=== PATIENT | female | born 1995 | race African-American/Black ===

== ENCOUNTER 2019-09-12 16:20 | Emergency (ER) | payer OTHER ==
--- OUTSIDE RECORDS SUMMARY | 2019-09-12 16:23 | XMS REPORT ---
:1995 Author Organization [facility] Address [address] [place] [address] Dr. Cheney [address] [place] [id number] Care Team Providers Name Role Phone Unavailable Unavailable Unavailable Problems This patient has no known problems. Allergies, Adverse Reactions, Alerts This patient has no known allergies or adverse reactions. Medications This patient has no known medications.
[2019-09-12] MEDS ORDERED: METOCLOPRAMIDE 10 MG/2mL INJ ONE (17:29)
[2019-09-12] MEDS ORDERED: NA CHLORIDE 0.9% 1,000 ML ONE ×2 (17:30→18:40)
[2019-09-12] MEDS ORDERED: DIPHENHYDRAMINE 50 MG/ML VIAL ONE (17:30)
[2019-09-12 17:56] LABS: Absolute Lymphocytes (CBC) 0.3 K/uL (0.7-4.9); Basophils % 0.4 % (0-1.3); Hematocrit 41.9 % (36.0-45.0); Lymphocytes % 2.7 % (15.3-44.8); MPV 8.8 fL (7.6-11.3); RBC Red Blood Cell Count 4.95 M/uL (3.86-4.86)
[2019-09-12 18:10] LABS: ALT/SGPT 38 U/L (12-78); AST/SGOT 24 U/L (15-37); Albumin 3.3 g/dL (3.4-5.0); Alkaline Phosphatase 25 U/L (45-117); BUN Blood Urea Nitrogen 12 mg/dL (7-18); Bicarbonate 22 mmol/L (21-32); Bilirubin Direct 0.1 mg/dL (0-0.2); Bilirubin Total 0.4 mg/dL (0.2-1.0); Glucose Level 102 mg/dL (74-106); Lipase 52 U/L (73-393); Potassium 3.7 mmol/L (3.5-5.1); Protein, Total 7.2 g/dL (6.4-8.2); Sodium Level 139 mmol/L (136-145)
[2019-09-12] MEDS ORDERED: ACETAMINOPHEN 500 MG TAB ONE (18:40)
[2019-09-12 20:08] LABS: Urine Blood TRACE (NEG); Urine Glucose NEGATIVE (NEG); Urine Protein TRACE (NEG); Urine Specific Gravity >1.030 (1.005-1.030); Urine pH 5.5 (5.0-7.0)
--- NOTE | 2019-09-12 20:29 | EDPHYS ---
Physician Documentation [facility] Name: Johnny Reynolds Age: 24 yrs Sex: Female : 1995 Arrival Date: 09/12/2019 Time: 16:31 Bed 27 Private MD: ED Physician Jer Nance HPI: 09/12 16:59 This 24 yrs old Black Female presents to ER via Ambulatory with complaints of Vomiting, jmm 19 wks . 16:59 The patient presents to the emergency department with nausea, vomiting. Onset: The jmm symptoms/episode began/occurred gradually, 1 day(s) ago. Possible causes: unknown, sick contacts, by family, daughter. The symptoms are aggravated by nothing. The symptoms are alleviated by nothing. Associated signs and symptoms: Pertinent negatives: fever. This is a 24 year old female with no chronic medical conditions whom is currently 19 weeks presents to the ED with complaints of vomiting, nausea beginning yesterday. No relief with OTC medications. Daughter has similar symptoms. Denies diarrhea. Denies fever. Denies vaginal bleeding but states having some pelvic cramping radiating to her back. . 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 - Social history:: Smoking status: Patient/guardian denies using tobacco. - Ebola Screening: : No symptoms or risks identified at this time. ROS: 16:59 Constitutional: Negative for fever, chills, and weight loss, Cardiovascular: Negative jmm for chest pain, palpitations, and edema, Respiratory: Negative for shortness of breath, cough, wheezing, and pleuritic chest pain. 16:59 Abdomen/GI: Positive for vomiting. 16:59 Back: Positive for radiated pain. 16:59 Neuro: Negative for headache. 16:59 All other systems are negative. Exam: 16:59 Constitutional: This is a well developed, well nourished patient who is awake, alert, jmm and in no acute distress. Head/Face: atraumatic. Eyes: EOMI, no conjunctival erythema appreciated ENT: Moist Mucus Membranes Neck: Trachea midline, Supple Chest/axilla: Normal chest wall appearance and motion. Cardiovascular: Regular rate and rhythm. No edema appreciated Respiratory: Normal respirations, no respiratory distress appreciated 16:59 Skin: General appearance color normal MS/ Extremity: Moves all extremities, no obvious deformities appreciated, no edema noted to the lower extremities Neuro: Awake and alert, normal gait Psych: Behavior is normal, Mood is normal, Patient is cooperative and pleasant 16:59 Abdomen/GI: Inspection: gravid appearance, Bowel sounds: normal, Palpation: soft, nontender, in all quadrants. 16:59 Back: CVA tenderness, is absent. Vital Signs: 16:48 BP 126 / 80; Pulse 121; Resp 16 S; Temp 99.7(O); Pulse Ox 98% on R/A; Weight 75.75 kg jl7 (R); Height 5 ft. 3 in. (160.02 cm) (R); Pain 4/10; 17:51 BP 129 / 91; Pulse 115; Resp 20; Pulse Ox 98% on R/A; aj1 18:32 BP 113 / 74; Pulse 110; Resp 20; Pulse Ox 99% on R/A; aj1 19:30 BP 115 / 74; Pulse 115; Resp 18; Pulse Ox 99% on R/A; Pain 0/10; jv1 20:30 BP 111 / 65; Pulse 107; Resp 18; Pain 0/10; jv1 16:48 Body Mass Index 29.58 (75.75 kg, 160.02 cm) jl7 MDM: 16:51 Patient medically screened. anthony 20:27 Data reviewed: vital signs, nurses notes. Counseling: I had a detailed discussion with anthony the patient and/or guardian regarding: the historical points, exam findings, and any diagnostic results supporting the discharge/admit diagnosis, lab results, radiology results, the need for outpatient follow up, to return to the emergency department if symptoms worsen or persist or if there are any questions or concerns that arise at home. ED course: Patient states feeling much better. Denies chest pain or shortness of breath. I do not suspect appendicitis. and daughter have similar symptoms. Patient is otherwise given strict return precautions. Patient understood and agrees with the plan of care. . 09/12 17:23 Order name: Basic Metabolic Panel; Complete Time: 18:10 [facility] 09/12 17:23 Order name: CBC with Diff; Complete Time: 18:15 [facility] 09/12 17:23 Order name: Creatinine for Radiology; Complete Time: 18:28 [facility] 09/12 17:23 Order name: Hepatic Function; Complete Time: 18:10 [facility] 09/12 17:23 Order name: Lipase; Complete Time: 18:10 [facility] 09/12 19:41 Order name: Urine Dipstick--Ancillary (enter results); Complete Time: 20:10 [facility] 09/12 17:23 Order name: IV Saline Lock; Complete Time: 17:43 [facility] 09/12 17:23 Order name: Labs collected and sent; Complete Time: 17:43 [facility] 09/12 19:41 Order name: Urine --Ancillary (enter results); Complete Time: 20:10 [facility] 09/12 17:23 Order name: Urine Dipstick-Ancillary (obtain specimen); Complete Time: 19:37 jm Administered Medications: 17:44 Drug: NS 0.9% 1000 ml Route: IV; Rate: 1 bolus; Site: right antecubital; aj1 19:35 Follow up: IV Status: Completed infusion; IV Intake: 1000ml aj1 17:44 Drug: Reglan 10 mg Route: IVP; Site: right antecubital; aj1 19:35 Follow up: Response: No adverse reaction aj1 17:45 Drug: diphenhydrAMINE 12.5 mg Route: IVP; Site: right antecubital; aj1 19:35 Follow up: Response: No adverse reaction aj1 18:42 Drug: Tylenol 1000 mg Route: PO; aj1 19:35 Follow up: Response: No adverse reaction aj1 18:42 Drug: NS 0.9% 1000 ml Route: IV; Rate: 1 bolus; Site: left antecubital; aj1 20:50 Follow up: Response: No adverse reaction; IV Intake: 1000ml jv1 Disposition: 09/13 07:35 Co-signature as Attending Physician, Jer Nance MD I agree with the assessment and kdr plan of care. Disposition: 09/12/19 20:28 Discharged to Home. Impression: Vomiting. - Condition is Stable. - Discharge Instructions: Nausea and Vomiting, Adult. - Prescriptions for Zofran ODT 4 mg Oral tablet,disintegrating - place 1 tablet by TRANSLINGUAL route every 4-8 hours; 20 tablet. - Medication Reconciliation Form, Thank You Letter, Antibiotic Education, Prescription Opioid Use form. - Follow up: Private Physician; When: 2 - 3 days; Reason: Recheck today's complaints, Continuance of care, Re-evaluation by your physician. Signatures: Dispatcher [employer] EDCaroline Pardo RN RN aj1 Jer Nance MD MD kdr Mickail, Joel, PA PA jmm Leal, Jahala, RN RN jl7 Alyce Valle RN RN jv1 Corrections: (The following items were deleted from the chart) 09/12 20:51 20:28 09/12/2019 20:28 Discharged to Home. Impression: Vomiting. Condition is Stable. jv1 Forms are Medication Reconciliation Form, Thank You Letter, Antibiotic Education, Prescription Opioid Use. Follow up: Private Physician; When: 2 - 3 days; Reason: Recheck today's complaints, Continuance of care, Re-evaluation by your physician. anthony
--- NOTE | 2019-09-12 20:29 | ER ---
Nurse's Notes [facility] Name: Johnny Reynolds Age: 24 yrs Sex: Female : 1995 Arrival Date: 09/12/2019 Time: 16:31 Bed 27 Private MD: Diagnosis: Vomiting Presentation: 09/12 16:46 Presenting complaint: Patient states: N/V x 1 day and intermittent lower back pain. jl7 Transition of care: patient was not received from another setting of care. Onset of symptoms was September 12, 2019. Risk Assessment: Do you want to hurt yourself or someone else? Patient reports no desire to harm self or others. Initial Sepsis Screen: Does the patient meet any 2 criteria? No. Patient's initial sepsis screen is negative. Does the patient have a suspected source of infection? No. Patient's initial sepsis screen is negative. Care prior to arrival: None. 16:46 Method Of Arrival: Ambulatory [facility] 16:46 Acuity: JULIAN 3 jl7 Triage Assessment: 16:48 General: Appears in no apparent distress. uncomfortable, Behavior is cooperative, jl7 anxious. Pain: Complains of pain in low back area Pain currently is 4 out of 10 on a pain scale. GI: Reports nausea, vomiting. 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 - Social history:: Smoking status: Patient/guardian denies using tobacco. - Ebola Screening: : No symptoms or risks identified at this time. Screenin:49 Abuse screen: Denies threats or abuse. Denies injuries from another. Nutritional aj1 screening: No deficits noted. Tuberculosis screening: No symptoms or risk factors identified. 18:32 Fall Risk None identified. aj1 Assessment: 17:49 General: Appears in no apparent distress. comfortable, Behavior is calm, cooperative, aj1 appropriate for age. Pain: Complains of pain in low back area Pain currently is 4 out of 10 on a pain scale. Neuro: Level of Consciousness is awake, alert, obeys commands, Oriented to person, place, time, situation. Cardiovascular: Patient's skin is warm and dry. Respiratory: Airway is patent Respiratory effort is even, unlabored, Respiratory pattern is regular, symmetrical. GI: Abdomen is non-distended, Bowel sounds present X 4 quads. Abd is soft and non tender X 4 quads. Reports nausea, vomiting. : No signs and/or symptoms were reported regarding the genitourinary system. EENT: No signs and/or symptoms were reported regarding the EENT system. Derm: No signs and/or symptoms reported regarding the dermatologic system. Skin is pink, warm \T\ dry. normal. Musculoskeletal: No signs and/or symptoms reported regarding the musculoskeletal system. Circulation, motion, and sensation intact. 18:32 Reassessment: Patient appears in no apparent distress at this time. No changes from aj1 previously documented assessment. Patient and/or family updated on plan of care and expected duration. Pain level reassessed. Patient is alert, oriented x 3, equal unlabored respirations, skin warm/dry/pink. 19:30 Reassessment: Patient appears in no apparent distress at this time. No changes from jv1 previously documented assessment. Patient and/or family updated on plan of care and expected duration. Pain level reassessed. Patient is alert, oriented x 3, equal unlabored respirations, skin warm/dry/pink. Patient states feeling better. 20:30 Reassessment: Patient appears in no apparent distress at this time. No changes from jv1 previously documented assessment. Patient and/or family updated on plan of care and expected duration. Pain level reassessed. Patient is alert, oriented x 3, equal unlabored respirations, skin warm/dry/pink. Patient denies pain at this time. Patient states feeling better. Patient states symptoms have improved. Vital Signs: 16:48 BP 126 / 80; Pulse 121; Resp 16 S; Temp 99.7(O); Pulse Ox 98% on R/A; Weight 75.75 kg jl7 (R); Height 5 ft. 3 in. (160.02 cm) (R); Pain 4/10; 17:51 BP 129 / 91; Pulse 115; Resp 20; Pulse Ox 98% on R/A; aj1 18:32 BP 113 / 74; Pulse 110; Resp 20; Pulse Ox 99% on R/A; aj1 19:30 BP 115 / 74; Pulse 115; Resp 18; Pulse Ox 99% on R/A; Pain 0/10; jv1 20:30 BP 111 / 65; Pulse 107; Resp 18; Pain 0/10; jv1 16:48 Body Mass Index 29.58 (75.75 kg, 160.02 cm) [facility] ED Course: 16:31 Patient arrived in ED. mr 16:38 Odilon Salvador PA is PHCP. m 16:38 Jer Nance MD is Attending Physician. [facility] 16:47 Triage completed. jl7 16:48 Arm band placed on right wrist. jl7 17:01 Caroline Barcenas, RN is Primary Nurse. aj1 17:49 Patient has correct armband on for positive identification. aj1 17:49 No provider procedures requiring assistance completed. aj1 20:49 IV discontinued, intact, bleeding controlled, No redness/swelling at site. Pressure jv1 dressing applied. Administered Medications: 17:44 Drug: NS 0.9% 1000 ml Route: IV; Rate: 1 bolus; Site: right antecubital; aj1 19:35 Follow up: IV Status: Completed infusion; IV Intake: 1000ml aj1 17:44 Drug: Reglan 10 mg Route: IVP; Site: right antecubital; aj1 19:35 Follow up: Response: No adverse reaction aj1 17:45 Drug: diphenhydrAMINE 12.5 mg Route: IVP; Site: right antecubital; aj1 19:35 Follow up: Response: No adverse reaction aj1 18:42 Drug: Tylenol 1000 mg Route: PO; aj1 19:35 Follow up: Response: No adverse reaction aj1 18:42 Drug: NS 0.9% 1000 ml Route: IV; Rate: 1 bolus; Site: left antecubital; aj1 20:50 Follow up: Response: No adverse reaction; IV Intake: 1000ml jv1 Intake: 19:35 IV: 1000ml; Total: 1000ml. aj1 20:50 IV: 1000ml; Total: 2000ml. jv1 Outcome: 20:28 Discharge ordered by . [facility] 20:48 Discharged to home ambulatory, with family. jv1 20:48 Condition: stable 20:48 Discharge instructions given to patient, family, Instructed on discharge instructions, follow up and referral plans. medication usage, Demonstrated understanding of instructions, follow-up care, medications, Prescriptions given X 1. 20:51 Patient left the ED. jv1 Signatures: Caroline Barcenas RN RN aj1 Odilon Salvador PA PA jmm Rivera, Mary mr Leal, Jahala, RN RN jl7 Alyce Valle RN RN jv1
[2019-09-12 21:01] VITALS: TEMP 99.7
[2019-09-12 21:04] VITALS: O2SAT 99
[2019-09-12 21:06] VITALS: BP 111/65
== END 2019-09-12 20:51 | disposition home or self-care (01) ==
LOC: ER 16:20
DX: O21.9 Vomiting of pregnancy, unspecified (principal); Z3A.19 19 weeks gestation of pregnancy
CPT/HCPCS: 96361; 85025; 80048; 36415; 81025; 80076; 81003; 83690; 96375; 96374; 99283; J2765; J1200; J7030 ×2